=== PATIENT | male | born 1955 | race Caucasian/White ===

== ENCOUNTER → 2018-12-29 13:38 | Outpatient (CLI) | payer BC, SELFPAY | PROVIDERS: PCP Family Medicine; Visit Provider Family Medicine | DX: G47.33 Obstructive sleep apnea (adult) (pediatric) (principal) | CPT/HCPCS: 95806; G0399 ==

== ENCOUNTER → 2020-08-14 12:12 | Outpatient (CLI) | payer BC, SELFPAY ==
[2020-08-15 13:42] LABS: Covid-19 Nasal PCR Sendout Lex Positive
== END ==
PROVIDERS: PCP Family Medicine; Visit Provider Family Medicine
DX: Z20.828 Contact with and (suspected) exposure to other viral communicable diseases (principal); U07.1 COVID-19
CPT/HCPCS: U0004